=== PATIENT | female | born 1990 | race Caucasian/White ===

== ENCOUNTER 2017-06-02 22:34 | Emergency (ER) | payer BC ==
--- NOTE | 2017-06-02 22:54 | EDM.PDOC ---
ED HPI GENERAL MEDICAL PROBLEM - General Chief Complaint: Genitourinary Problem Stated Complaint: BLOOD IN URINE, PAINFUL URINATION, CLOTS IN URINE Time Seen by Provider: 06/02/17 22:45 Source of Information: Reports: Patient. Denies: Old Records ([facility] records available) History Limitations: Reports: No Limitations - History of Present Illness INITIAL COMMENTS - FREE TEXT/NARRATIVE: Patient was brought to the emergency room via private automobile by her for evaluation of progressive dysuria and urinary frequency with symptoms starting about 2 days ago with beginning gross hematuria about 2 hours prior to arrival. She does have a history of recurrent UTIs, however denies any colic, etc. She just completed amoxicillin therapy for nonspecific jaw/dental pain about 3 days ago with no improvement of these symptoms. No recent history of abdominal pain, heartburn, nausea, diarrhea, melena, gross hematochezia, or any food intolerance, including fatty foods, etc.. The patient also denies any recent fever, cough, wheezing, dyspnea, etc.. Onset: Gradual Onset Date: 05/31/17 Duration: Constant, Getting Worse Location: Reports: Head (Dental pain at TMJ versus right lower molar region), Pelvis (Suprapubic burning). Denies: Face, Neck, Chest, Abdomen, Back, Upper Extremity, Left, Upper Extremity, Right, Radiates to Quality: Reports: Burning, Same as Previous Episode Severity: Moderate Improves with: Reports: None Worsens with: Reports: None Associated Symptoms: Denies: Confusion, Chest Pain, Cough, Diaphoresis, Fever/ Chills, Headaches, Loss of Appetite, Malaise, Nausea/Vomiting, Shortness of Breath, Syncope, Weakness Treatments RN OSTOMY: Reports: Other (see below) (None) Middle Suprapubic Pain Score (Numeric/FACES): 5 - Related Data Allergies Allergy/AdvReac Type Severity Reaction Status Date / Time ibuprofen Allergy Hives Verified 06/02/17 22:36 Home Meds: Home Meds Inhaler PO DAILY PRN 06/02/17 [History] Loratadine [Claritin] 10 mg PO DAILY PRN 06/02/17 [History] Nitrofurantoin Monohyd/M-Cryst [Macrobid 100 mg Capsule] 100 mg PO BID #20 capsule 06/02/17 [Rx] Phenazopyridine [Pyridium] 200 mg PO BID #6 tab 06/02/17 [Rx] Wellbutrin PO DAILY 06/02/17 [History] Past Medical History HEENT History: Reports: Allergic Rhinitis, Impaired Vision, Other (See Below). Denies: Cataract, Glaucoma, Hard of Hearing, Macular Degeneration Other HEENT History: Patient wears glasses Cardiovascular History: Reports: None, Other (See Below). Denies: Afib, Aneurysm, Arrhythmia, Blood Clots/VTE/DVT, Heart Murmur, High Cholesterol, Hypertension, Syncope Respiratory History: Reports: Asthma, Bronchitis, Recurrent, Other (See Below) Other Respiratory History: Reactive airway disease Gastrointestinal History: Reports: None. Denies: Celiac Disease, Cholelithiasis , Chronic Constipation, Chronic Diarrhea, GERD, GI Bleed, Hepatitis, Inflammatory Bowel Disease, Irritable Bowel Syndrome, Jaundice, Pancreatitis, PUD Genitourinary History: Reports: UTI, Recurrent. Denies: Acute Renal Failure, BPH, Chronic Renal Insuffiency, Renal Calculus, STD, Urinary Incontinence [employer] History: Reports: Dysfunctional Uterine Bleeding, . Denies: Endometriosis, Fibroids, Spontaneous : 2 Para: 2 (Gestational diabetes with ; otherwise Full term without complications during pregnancies or deliveries) LMP (Approximate): 1 Month Musculoskeletal History: Reports: Fracture, Other (See Below). Denies: Amputation, Arthritis, Back Pain, Chronic, Gout, Neck Pain, Chronic, Osteoarthritis, RA, SLE Other Musculoskeletal History: Tuft Fracture of digit #3 of the left hand at about age 11; left sided carpal tunnel syndrome with not requiring surgery Neurological History: Reports: Headaches, Chronic, Other (See Below). Denies: Cerebral Aneurysms, Concussion, CVA, Head Trauma, Migraines, MS, Neuropathy, Diabetic, Neuropathy, Peripheral, Parkinson's, Seizure, TIA Other Neuro History: Cluster headaches Psychiatric History: Reports: Anxiety, Depression. Denies: Abuse, Victim of, ADD, ADHD, Addiction, Psych Hospitalization(s), PTSD, Suicide Attempt, Suicidal Ideation Endocrine/Metabolic History: Reports: Diabetes, Gestational. Denies: Diabetes, Type I, Diabetes, Type II, Hypothyroidism, IDDM Hematologic History: Reports: None. Denies: Anemia, Blood Transfusion(s), Iron Deficiency Immunologic History: Denies: AIDS, HIV, SLE Oncologic (Cancer) History: Reports: None. Denies: Basal Cell Carcinoma, Cervix , Hodgkin's Lymphoma, Leukemia, Lymphoma, Malignant Melanoma, Non-Hodgkin's Lymphoma, Squamous Cell Carcinoma Dermatologic History: Reports: None. Denies: Eczema, Psoriasis - Infectious Disease History Infectious Disease History: Reports: Chicken Pox. Denies: C-Difficile, Measles , Meningitis, Mononucleosis, MRSA, Mumps, Pertussis (Whooping Cough), Rheumatic Fever, Rubella, Scarlet Fever, VRE - Past Surgical History Head Surgeries/Procedures: Reports: None HEENT Surgical History: Reports: Oral Surgery, Other (See Below). Denies: Adenoidectomy, Cataract Surgery, Eye Surgery, Laser Surgery, Myringotomy w Tube( s), Naso-Sinus Surgery, Tonsillectomy Other HEENT Surgeries/Procedures: Teeth extraction Cardiovascular Surgical History: Reports: None. Denies: Varicose, Vascular Surgery Respiratory Surgical History: Reports: None. Denies: Thoracentesis GI Surgical History: Denies: Appendectomy, Cholecystectomy, Colonoscopy, EGD, Hernia, Abdominal, Hernia, Inguinal, Hernia Repair/Other Female Surgical History: Reports: Other (See Below) Other Female Surgeries/Procedures: IUD placement in April 2015 Endocrine Surgical History: Reports: None. Denies: Thyroid Biopsy Neurological Surgical History: Reports: None. Denies: C-Spine, Discectomy, Laminectomy, Lumbar Spine, Sacral Spine, Spinal Fusion, Vertebroplasty Musculoskeletal Surgical History: Reports: None. Denies: Arthroscopic Procedure , Carpal Tunnel, Ganglion Cyst, ORIF, Shoulder Surgery Oncologic Surgical History: Reports: None Dermatological Surgical History: Reports: None Social & Family History - Tobacco Use Smoking Status *Q: Never Smoker Tobacco Use Within Last Twelve Months: No Used Tobacco, but Quit: No Smoking Cessation Information Provided To Patient: No Second Hand Smoke Exposure: No Second Hand Smoke Education Provided: No - Caffeine Use Caffeine Use: Reports: Coffee (1 cup per day), Tea (2 cups per day). 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 ED EXAM, RENAL/ - Physical Exam Exam: See Below Exam Limited By: No Limitations General Appearance: Alert, WD/WN, No Apparent Distress. No: Anxious Eye Exam: Bilateral Eye: EOMI, Normal Inspection (No nystagmus), PERRL Ears: Normal External Exam, Normal Canal, Hearing Grossly Normal, Normal TMs Nose: Normal Inspection, Normal Mucosa, No Blood Throat/Mouth: Normal Inspection, Normal Lips, Normal Gums, Normal Oropharynx, Normal Voice, No Airway Compromise. No: Normal Teeth (Occasional missing teeth with no gingiva swelling or evidence of caries; questionable discomfort in right TMJ versus right lower molar region), Dysphagia, Inflammation, Perioral Cyanosis Head: Atraumatic, Normocephalic. No: Facial Swelling, Facial Tenderness, Sinus Tenderness Neck: Normal Inspection, Supple, Non-Tender, Full Range of Motion. No: Lymphadenopathy (L), Lymphadenopathy (R), Thyromegaly Respiratory/Chest: No Respiratory Distress, Lungs Clear, Normal Breath Sounds, No Accessory Muscle Use, Chest Non-Tender. No: Pleural Rub, Retractions Cardiovascular: Normal Peripheral Pulses, Regular Rate, Rhythm, No Edema, No Gallop, No JVD, No Murmur, No Rub. No: Gallop/S3, Gallop/S4, Friction Rub GI/Abdominal: Normal Bowel Sounds, Soft, Non-Tender, No Organomegaly, No Distention, No Abnormal Bruit, No Mass, Pelvis Stable. No: Guarding (Female) Exam: Deferred Rectal (Female) Exam: Deferred Back Exam: Normal Inspection, Full Range of Motion. No: CVA Tenderness (L), CVA Tenderness (R), Muscle Spasm Extremities: Normal Inspection, Normal Range of Motion, Non-Tender, No Pedal Edema, Normal Capillary Refill. No: Pedal Edema, Subha's Sign Neurological: Alert, Oriented, CN II-XII Intact, Normal Cognition, Normal Gait, No Motor/Sensory Deficits Psychiatric: Normal Affect, Normal Mood Skin Exam: Warm, Dry, Intact, Normal Color, No Rash, Tattoo(s) (Multiple). No: Diaphoretic, Wound/Incision Lymphatic: No Adenopathy Course - Vital Signs Last Recorded V/S: Last Vital Signs Temp 36.6 C 06/02/17 22:49 Pulse 90 06/02/17 22:37 Resp 14 06/02/17 22:37 BP 114/76 06/02/17 22:37 Pulse Ox 100 06/02/17 22:37 Vital Signs - 24 hr 06/02/17 06/02/17 22:37 22:49 Temperature [ 36.6 C Oral] Pulse, 90 Peripheral [ Right Pulse Oximetry] Respiratory 14 Rate Blood Pressure 114/76 [Right Upper Arm] O2 Sat by Pulse 100 Oximetry - Orders/Labs/Meds Orders: Active Orders 24 hr Category Date Time Status CULTURE URINE [RM] Routine Lab 06/02/17 22:55 Uncollected Obtain Past Medical Record [OM.PC] Routine Oth 06/02/17 22:55 Active Labs: Laboratory Tests 06/02/17 Range/Units 22:48 Specimen Type Urincc Urine Color Red Urine Appearance Cloudy Urine pH 6.0 (5.0-9.0) Ur Specific [place] <= 1.005 (1.005-1.030) Urine Protein 100 H (NEGATIVE) mg/dL Urine Glucose (UA) Negative (NEGATIVE) mg/dL Urine Ketones Negative (NEGATIVE) mg/dL Urine Occult Blood Large H (NEGATIVE) Urine Nitrite Negative (NEGATIVE) Urine Bilirubin Negative (NEGATIVE) Urine Urobilinogen 0.2 (0.2-1.0) E.U./dL Ur Leukocyte Esterase Large H (NEGATIVE) Urine RBC 50-75 H /HPF Urine WBC >100 H /HPF Ur Epithelial Cells Few /LPF Urine Bacteria Moderate H (NONE TO FEW) /HPF Urinalysis Comment Urine specimen set up for culture and sensitivity Meds: Medications Discontinued Medications Generic Name Dose Route Start Last Admin Trade Name Freq PRN Reason Stop Dose Admin Nitrofurantoin Macrocrystals 100 mg 06/02/17 23:11 Macrobid PO 06/02/17 23:12 ONETIME ONE Phenazopyridine HCl 95 mg 06/03/17 23:12 Urinary Pain Relief PO 06/03/17 23:13 ONETIME ONE Phenazopyridine HCl 95 mg 06/02/17 23:12 Urinary Pain Relief PO 06/02/17 23:13 ONETIME ONE - Radiology Interpretation Free Text/Narrative:: None Departure - Departure Time of Disposition: 23:30 Disposition: Home, Self-Care 01 Condition: Good Clinical Impression: UTI, Urinary tract infectious disease, Pain, dental, Mixed anxiety depressive disorder Allergic rhinitis Qualifiers: Chronicity: chronic Allergic rhinitis trigger: pollen Allergic rhinitis seasonality: seasonal Qualified Code(s): J30.1 - Allergic rhinitis due to pollen - Discharge Information Prescriptions: Nitrofurantoin Monohyd/M-Cryst [Macrobid 100 mg Capsule] 100 mg PO BID #20 capsule Phenazopyridine [Pyridium] 200 mg PO BID #6 tab Instructions: Urinary Tract Infection, Adult, [id number] Referrals: Nolan Mesa PA [Primary Care Provider] - Forms: ED Department Discharge Additional Instructions: 1. Followup with your regular provider in 10-14 days as directed. 2. Urine tests should be repeated at follow up visit with possible repeat urine culture,etc. at that time. Today's urine culture is pending with results in about 2-3 days. We will call you, if we need to change your therapy. 3. Tylenol 650 mg by mouth every 4 hours when necessary as directed. 4. Encourage oral fluids, including daily cranberry use, etc.as directed. 5. [place] urine precautions with Pyridium as discussed 6. Follow-up with your dentist JT as discussed - Problem List & Annotations (1) UTI, Urinary tract infectious disease SNOMED Code(s): 56642411 Code(s): N39.0 - URINARY TRACT INFECTION, SITE NOT SPECIFIED Status: Acute Priority: High Onset Date: 05/31/17 Annotation/Comment:: History of recurrent UTIs in the past. Close follow-up by regular provider as per discharge instructions. Urine specimen set up for culture and sensitivity (2) Pain, dental SNOMED Code(s): 78756299 Code(s): K08.89 - OTHER SPECIFIED DISORDERS OF TEETH AND SUPPORTING STRUCTURES Status: Acute Priority: Medium Onset Date: ~05/20/17 Annotation/Comment:: Nonspecific dental versus jaw pain with apparent history of a cracked tooth in the past. No improvement with recent amoxicillin therapy as above. No evidence of significant acute infection by today's exam. Follow-up with her dentist JT (3) Allergic rhinitis SNOMED Code(s): 95674770 Code(s): J30.9 - ALLERGIC RHINITIS, UNSPECIFIED Status: Chronic Priority : Medium Annotation/Comment:: Stable by history Qualifiers: Chronicity: chronic Allergic rhinitis trigger: pollen Allergic rhinitis seasonality: seasonal Qualified Code(s): J30.1 - Allergic rhinitis due to pollen (4) Mixed anxiety depressive disorder SNOMED Code(s): 214224849 Code(s): F41.8 - OTHER SPECIFIED ANXIETY DISORDERS Status: Chronic Priority: Medium Annotation/Comment:: Stable by history - Problem List Review Problem List Initiated/Reviewed/Updated: Yes - My Orders Last 24 Hours: My Active Orders 06/02/17 22:55 CULTURE URINE [RM] Routine Obtain Past Medical Record [OM.PC] Routine - Assessment/Plan Last 24 Hours: My Active Orders 06/02/17 22:55 CULTURE URINE [RM] Routine Obtain Past Medical Record [OM.PC] Routine Assessment:: As above Plan: As above. Extensive precautions were given to the patient, who is in agreement with the treatment plan. See Patient Instructions for further treatment and plan.
[2017-06-02] MEDS ORDERED: Nitrofurantoin Monohydrate/Macrocrystalline 100 MG Cap PO ONE (23:11)
[2017-06-02] MEDS ORDERED: Phenazopyridine 95 MG Tab PO ONE (23:12)
[2017-06-03] MEDS ORDERED: Phenazopyridine 95 MG Tab PO ONE (23:12)
== END 2017-06-02 23:30 | disposition home or self-care (01) ==
LOC: LL.ED 22:34
DX: N39.0 Urinary tract infection, site not specified (principal); F41.8 Other specified anxiety disorders; J30.1 Allergic rhinitis due to pollen; K08.89 Other specified disorders of teeth and supporting structures; Z88.8 Allergy status to other drugs, medicaments and biological substances; Z79.899 Other long term (current) drug therapy
CPT/HCPCS: 81001; 87086; 99283; A9270

== ENCOUNTER 2021-08-01 15:41 | Emergency (ER) | payer BC ==
[2021-08-01 16:00] VITALS: BP 115/76; PULSE 86
== END 2021-08-01 16:50 | disposition home or self-care (01) ==
LOC: LL.ED 15:41
DX: N39.0 Urinary tract infection, site not specified (principal); Z91.018 Allergy to other foods; Z88.8 Allergy status to other drugs, medicaments and biological substances; Z79.899 Other long term (current) drug therapy
CPT/HCPCS: 81001; 99283

== ENCOUNTER 2021-11-01 17:41 | Emergency (ER) | payer BC ==
[2021-11-01] MEDS: Ciprofloxacin 500 MG Tab PO SCH (19:12)
[2021-11-02] MEDS ORDERED: Phenazopyridine 95 MG Tab PO SCH (08:30)
== END 2021-11-01 18:42 | disposition home or self-care (01) ==
LOC: LL.ED 17:41
DX: N30.00 Acute cystitis without hematuria (principal); J45.909 Unspecified asthma, uncomplicated; Z91.018 Allergy to other foods; Z88.6 Allergy status to analgesic agent; Z79.899 Other long term (current) drug therapy
CPT/HCPCS: 81001; 87086; 87088; 87186; 99283

== ENCOUNTER 2022-11-09 12:09 | Emergency (ER) | payer BC ==
[2022-11-09] MEDS ORDERED: Sodium Chloride 0.9% 10 ML Syringe FLUSH PRN (12:23)
[2022-11-09] MEDS: Ondansetron 4 MG/2 ML SDV IVPUSH ONE (12:47)
[2022-11-09] MEDS: Sodium Chloride 0.9% 1,000 ML IV SCH (12:47)
[2022-11-09 12:48] LABS: BASOPHILS ABSOLUTE AUTO 0.03 K/uL (0.00-0.20); BASOPHILS PERCENT AUTO 0.5 % (0.0-2.0); EOSINOPHILS ABSOLUTE AUTO 0.21 K/uL (0.00-0.50); EOSINOPHILS PERCENT AUTO 3.4 % (0.0-5.0); HEMATOCRIT 43.6 % (34.0-46.0); HEMOGLOBIN 14.2 g/dL (11.7-15.5); LYMPHOCYTES ABSOLUTE AUTO 1.54 K/uL (0.50-3.50); LYMPHOCYTES PERCENT AUTO 25.2 % (10.0-50.0); MEAN CORPUSCULAR HEMOGLOBIN 29.7 pg (28.2-33.3); MEAN CORPUSCULAR HGB CONC 32.6 g/dL (31.7-36.0); MEAN CORPUSCULAR VOLUME 91.2 fL (84.0-98.0); MONOCYTES ABSOLUTE AUTO 0.45 K/uL (0.00-1.00); MONOCYTES PERCENT AUTO 7.4 % (2.0-14.0); NEUTROPHILS ABSOLUTE AUTO 3.88 K/uL (1.40-7.00); NEUTROPHILS PERCENT AUTO 63.5 % (45.0-80.0); PLATELET COUNT,PLT 300 K/uL (150-350); RED BLOOD CELL COUNT 4.78 M/uL (3.77-5.09); RED CELL DISTRIBUTION WIDTH 15.1 % (11.2-14.1); WHITE BLOOD CELL COUNT,WBC 6.1 K/uL (4.0-10.2)
[2022-11-09 12:57] LABS: APPEARANCE,URINE CLEAR; BILIRUBIN,URINE NEGATIVE (NEGATIVE); COLOR,URINE YELLOW; GLUCOSE,URINE NEGATIVE (NEGATIVE); KETONES,URINE NEGATIVE (NEGATIVE); LEUKOCYTE ESTERASE,URINE NEGATIVE (NEGATIVE); NITRITE,URINE NEGATIVE (NEGATIVE); OCCULT BLOOD,URINE NEGATIVE (NEGATIVE); PROTEIN,URINE NEGATIVE (NEGATIVE); UROBILINOGEN,URINE 0.2 E.U./dL (0.2-1.0)
[2022-11-09 13:05] LABS: ALANINE AMINOTRANSFERASE,ALT 26 U/L (12-78); ALBUMIN 3.9 g/dL (3.4-5.0); ALKALINE PHOSPHATASE 77 IU/L (46-116); AMYLASE 51 U/L (25-115); ANION GAP 7.2 meq/L (7-15); ASPARTATE AMNIOTRANSFERASE,AST 23 U/L (15-37); BILIRUBIN TOTAL 0.5 mg/dL (0.2-1.0); BLOOD UREA NITROGEN,BUN 8 mg/dL (7-18); CALCIUM 8.8 mg/dL (8.5-10.1); CARBON DIOXIDE,CO2 25.8 mmol/L (21.0-32.0); CHLORIDE,CL 103 mmol/L (98-107); CREATININE 0.95 mg/dL (0.51-1.17); GLUCOSE RANDOM 96 mg/dL (70-99); LIPASE 88 U/L (73-393); POTASSIUM,K 4.2 mmol/L (3.5-5.1); PROTEIN TOTAL,TP 7.4 g/dL (6.4-8.2); SODIUM,NA 136 mmol/L (136-145)
[2022-11-09 13:08] LABS: ESTIMATED GFR 83 mL/min (>=60)
[2022-11-09] MEDS: Iopamidol 612 MG/ML 100 ML Bottle IVPUSH STA (14:25)
[2022-11-09] MEDS: Meclizine 25 MG Tab PO ONE (14:38)
[2022-11-09] MEDS: traMADol 50 MG Tab PO ONE (14:38)
[2022-11-09] MEDS: Lactulose Soln 10 GM/15 ML 30 ML UD Cup PO ONE (15:10)
[2022-11-09] MEDS: Take Home: traMADol 50 MG, 4 Tab Pack PO ONE (15:17)
[2022-11-09] MEDS: Take Home: Ondansetron 4 MG Tab.DIS, 5 Tab Pack PO ONE (15:17)
== END 2022-11-09 15:47 | disposition home or self-care (01) ==
LOC: LL.ED 12:09
DX: R10.84 Generalized abdominal pain (principal); J45.909 Unspecified asthma, uncomplicated; E11.9 Type 2 diabetes mellitus without complications; Z88.6 Allergy status to analgesic agent; Z91.018 Allergy to other foods
CPT/HCPCS: 36415; 74019; 74177; 80053; 81003; 81025; 82150; 83690; 84443; 85025; 96374; 99284; 99284-25; A9270-GY; J2405; J7030; Q0162; Q9967

== ENCOUNTER 2023-03-05 16:29 | Emergency (ER) | payer BC ==
[2023-03-05 17:29] LABS: BASOPHILS ABSOLUTE AUTO 0.02 K/uL (0.00-0.20); BASOPHILS PERCENT AUTO 0.3 % (0.0-2.0); EOSINOPHILS PERCENT AUTO 1.7 % (0.0-5.0); HEMOGLOBIN 14.6 g/dL (11.7-15.5); LYMPHOCYTES ABSOLUTE AUTO 1.56 K/uL (0.50-3.50); LYMPHOCYTES PERCENT AUTO 26.9 % (10.0-50.0); MEAN CORPUSCULAR HGB CONC 33.2 g/dL (31.7-36.0); MEAN CORPUSCULAR VOLUME 90.5 fL (84.0-98.0); MONOCYTES ABSOLUTE AUTO 0.51 K/uL (0.00-1.00); MONOCYTES PERCENT AUTO 8.8 % (2.0-14.0); NEUTROPHILS ABSOLUTE AUTO 3.61 K/uL (1.40-7.00); NEUTROPHILS PERCENT AUTO 62.3 % (45.0-80.0); PLATELET COUNT,PLT 301 K/uL (150-350); RED BLOOD CELL COUNT 4.86 M/uL (3.77-5.09); WHITE BLOOD CELL COUNT,WBC 5.8 K/uL (4.0-10.2)
[2023-03-05 17:34] LABS: CORONAVIRUS COVID-19 NAA NEGATIVE (NEGATIVE); INFLUENZA A NAA NEGATIVE (NEGATIVE); INFLUENZA B NAA NEGATIVE (NEGATIVE); RESPIRATORY SYNCYTIAL VIR NAA NEGATIVE (NEGATIVE)
== END 2023-03-05 18:30 | disposition home or self-care (01) ==
LOC: LL.ED 16:29
DX: B34.9 Viral infection, unspecified (principal); Z20.822 Contact with and (suspected) exposure to COVID-19; Z88.8 Allergy status to other drugs, medicaments and biological substances; Z91.018 Allergy to other foods
CPT/HCPCS: 0241U; 36415; 85025; 87081; 87430; 99283

== ENCOUNTER 2023-11-10 20:42 | Emergency (ER) | payer BC ==
[2023-11-10 20:45] VITALS: BP 122/86; PULSE 88
== END 2023-11-10 21:35 | disposition home or self-care (01) ==
LOC: LL.ED 20:42
DX: S93.401A Sprain of unspecified ligament of right ankle, initial encounter (principal); J45.909 Unspecified asthma, uncomplicated; Z91.018 Allergy to other foods; Z88.8 Allergy status to other drugs, medicaments and biological substances; W01.0XXA Fall on same level from slipping, tripping and stumbling without subsequent striking against object, initial encounter
CPT/HCPCS: 73610-RT; 99283

== ENCOUNTER 2025-02-21 18:09 | Emergency (ER) | payer BC ==
[2025-02-21 18:25] LABS: APPEARANCE,URINE SLIGHTLY CLOUDY; GLUCOSE,URINE NEGATIVE (NEGATIVE); OCCULT BLOOD,URINE SMALL (NEGATIVE)
[2025-02-21 18:39] LABS: SQUAMOUS EPITHELIAL CELLS,UR FEW /HPF (NOT SEEN)
[2025-02-21] MEDS: Take Home: Nitrofurantoin Monohydrate/Macrocrystalline 100 MG, 6 Cap Pack PO ONE (18:47)
== END 2025-02-21 18:48 | disposition home or self-care (01) ==
LOC: LL.ED 18:09
DX: N39.0 Urinary tract infection, site not specified (principal); J45.909 Unspecified asthma, uncomplicated; E11.9 Type 2 diabetes mellitus without complications; Z79.899 Other long term (current) drug therapy; Z91.018 Allergy to other foods; Z88.6 Allergy status to analgesic agent
CPT/HCPCS: 81001; 87086; 87088; 87186; 99284; A9270-GY